=== PATIENT | male | born 1995 | race Caucasian/White ===

== ENCOUNTER 2017-05-20 18:13 | Emergency (ER) | payer BC ==
[2017-05-20 18:58] LABS: APPEARANCE CLEAR (CLEAR); COLOR DK YELLOW (YELLOW); NITRITE NEGATIVE (NEGATIVE)
[2017-05-20 18:59] LABS: BILIRUBIN NEGATIVE (NEGATIVE); GLUCOSE NEGATIVE (NEGATIVE); KETONE NEGATIVE (NEGATIVE); PROTEIN NEGATIVE (NEGATIVE); UROBILINOGEN NORMAL (NORMAL)
[2017-05-23 22:08] LABS: CHLAMYDIA TRACHOMATIS, NAA Negative (Negative)
== END 2017-05-20 21:14 ==
LOC: EDBD 18:13 → D.ER 18:13
PROVIDERS: Family Medicine
DX: N44.00 Torsion of testis, unspecified (principal)